=== PATIENT | female | born 1995 | race Two or more races ===

== ENCOUNTER 2016-09-29 05:33 | Emergency (ER) | payer MEDICAID ==
[~2016-09-29] VITALS: Ht 152.4 cm; Wt 101.2 kg
[2016-09-29 06:02] VITALS: BP 149/94
[2016-09-29] MEDS ORDERED: SODIUM CHLORIDE 0.9% 1,000 ML IVB ONE (06:22)
[2016-09-29] MEDS ORDERED: METOCLOPRAMIDE HCL 5MG/ml INJ 2ml VIAL IV ONE (06:30)
[2016-09-29] MEDS ORDERED: KETOROLAC TROMETH 30 MG/ML 1ML VIAL IV ONE (06:30)
[2016-09-29 06:49] LABS: Basophils # (auto) 0.1 uL; Basophils % (auto) 1.2 % (0.0-2.0); CONDITION Y; DEFINITIVE SEE PRINTOUT; Eosinophils # (auto) 0.5 uL; Eosinophils % (auto) 4.3 % (0.0-7.0); Hematocrit 38.5 % (36.0-46.0); Hemoglobin 12.8 g/dL (12.2-16.2); Lymphocytes # (auto) 1.5 uL; Lymphocytes % (auto) 14.2 % (10.0-50.0); Mean Corpuscular Hemoglobin 25.3 pg (28.0-32.0); Mean Corpuscular Hgb Conc. 33.2 g/dL (32.0-36.0); Mean Corpuscular Volume 76.1 fL (80.0-100.0); Mean Platelet Volume 8.9 fL (7.4-10.4); Monocytes # (auto) 0.4 uL; Monocytes % (auto) 3.9 % (0.0-12.0); Neutrophils # (auto) 8.2 uL; Neutrophils % (auto) 76.4 % (37.0-80.0); Platelet Count (auto) 389 10^3/uL (140-450); Red Cell Distribution Width 16.8 % (11.6-16.0); White Blood Cell 10.7 10^3/uL (4.4-10.8)
[2016-09-29 06:55] LABS: INR 0.88 (0.9-1.15); Prothrombin Time 9.6 sec (9.37-12.3)
[2016-09-29 07:03] LABS: Albumin 3.9 g/dL (3.4-5.0); BUN/Creatinine Ratio 13.8; Calcium 9.1 mg/dL (8.5-10.1); Potassium 3.3 mmol/L (3.5-5.1)
[2016-09-29 07:06] LABS: Bilirubin, Total 0.2 mg/dL (0.2-1.0)
[2016-09-29] MEDS ORDERED: TAMSULOSIN HYDROCHLORIDE 0.4 MG CAP PO ONE (08:45)
== END 2016-09-29 10:29 | disposition home or self-care (01) ==
LOC: ER 05:36
DX: N20.1 Calculus of ureter (principal); N13.30 Unspecified hydronephrosis; E87.6 Hypokalemia; Z53.29 Procedure and treatment not carried out because of patient's decision for other reasons
CPT/HCPCS: 36415; 74176; 80053; 82150; 83690; 83735; 84702; 85025; 85610; 85730; 94761; 96361; 96374; 96375; 99285; J1885; J2765